=== PATIENT | female | born 1940 ===

== ENCOUNTER 2017-01-20 12:29 | Outpatient (RCR) | payer MEDICARE, MEDICAID | END 2017-01-30 | disposition home or self-care (01) | LOC: PTY 12:29 | DX: M75.121 Complete rotator cuff tear or rupture of right shoulder, not specified as traumatic (principal) | CPT/HCPCS: 97110; 97161; G0283; G8984; G8985 ==

== ENCOUNTER 2017-02-26 09:00 | Outpatient (RCR) | payer MEDICARE, MEDICAID | END 2017-03-01 | disposition home or self-care (01) | LOC: PTY 09:00 | DX: M75.121 Complete rotator cuff tear or rupture of right shoulder, not specified as traumatic (principal); I10 Essential (primary) hypertension; M19.91 Primary osteoarthritis, unspecified site; M81.0 Age-related osteoporosis without current pathological fracture | CPT/HCPCS: 97110; 97140; G0283 ==

== ENCOUNTER 2017-03-28 09:45 | Outpatient (RCR) | payer MEDICARE, MEDICAID | END 2017-04-01 | disposition home or self-care (01) | LOC: PTY 09:45 | DX: M75.121 Complete rotator cuff tear or rupture of right shoulder, not specified as traumatic (principal) | CPT/HCPCS: 97110; G0283 ==

== ENCOUNTER 2017-04-15 11:00 | Outpatient (RCR) | payer MEDICARE, OTHER | END 2017-05-01 | disposition home or self-care (01) | LOC: PTY 11:00 | DX: M75.121 Complete rotator cuff tear or rupture of right shoulder, not specified as traumatic (principal); M19.90 Unspecified osteoarthritis, unspecified site; M81.0 Age-related osteoporosis without current pathological fracture | CPT/HCPCS: 97110; G0283; G8985; G8986 ==